=== PATIENT | female | born 1995 | race Caucasian/White ===

== ENCOUNTER 2019-05-14 00:02 | Emergency (ER) | payer BC ==
[2019-05-14 00:16] VITALS: BP 97/61; PULSE 85; TEMP 98.3; BMI 24.5
--- NOTE | 2019-05-14 00:22 | PDOC ---
History of Present Illness - General Chief Complaint: Wound Stated Complaint: R KNEE INJURY History Source: Patient Exam Limitations: No Limitations - History of Present Illness Initial Comments: 05/14/19 01:12 24 yo F with no past medical history presents to the emergency department with right knee pain. Per the patient, it has been ongoing for 3 days. It is warm to the touch, painful when she touches it, but does not limit her ability to walk and bend her knee. Per the patient, it started after she popped a "pimple" on her right knee at [facility]. She states she expressed pus and blood out of her knee yesterday. Denies the following: fever, chills, nausea, vomiting, visual disturbance, headaches, abdominal pain, numbness in legs, weakness in legs, and diarrhea. Of note, the patient recently traveled back from [place] during . Denies previous bug bite. Allergies: NKDA Shx: None Meds: None Past History - Past Medical History Allergies/Adverse Reactions: Allergies Allergy/AdvReac Type Severity Reaction Status Date / Time No Known Allergies Allergy Verified 05/14/19 01:33 Home Medications: Ambulatory Orders Clindamycin [Cleocin -] 450 mg PO TID #21 capsule 05/14/19 COPD: No - Psycho Social/Smoking Cessation Hx Smoking History: Never smoked Hx Alcohol Use: Yes (socially) Drug/Substance Use Hx: No Review of Systems - Review of Systems Able to Perform ROS?: Yes Is the patient limited Frisian proficient: No Constitutional: No: Chills, Diaphoresis, Fever, Weakness HEENTM: No: Eye Pain, Ear Pain, Nose Pain, Throat Pain, Mouth Pain Respiratory: No: Cough, Shortness of Breath, Hemoptysis Cardiac (ROS): No: Chest Pain, Lightheadedness, Palpitations, Syncope, Chest Tightness ABD/GI: No: Constipated, Diarrhea, Nausea, Rectal Bleeding, Vomiting, Tarry Stools : No: Dysuria, Hematuria Musculoskeletal: No: Back Pain Integumentary: Yes: Erythema (right knee). No: Bruising, Rash Neurological: No: Headache, Numbness, Tingling, Tremors Psychiatric: No: Change in Appetite Endocrine: No: Unexplained Weight Loss Hematologic/Lymphatic: No: Anemia *Physical Exam - Vital Signs Last Vital Signs Temp Pulse Resp BP Pulse Ox 98.3 F 85 18 97/61 97 05/14/19 00:10 05/14/19 00:10 05/14/19 00:10 05/14/19 00:10 05/14/19 00:10 - Physical Exam General Appearance: Yes: Nourished, Appropriately Dressed. No: Apparent Distress, Intoxicated HEENT: positive: EOMI, CHANTEL, Normal Voice, Symmetrical, Pharynx Normal, Hearing Grossly Normal. negative: Pale Conjunctivae, Scleral Icterus (R), Scleral Icterus (L), Muffled/Hoarse voice, Pharyngeal Erythema, Tonsillar Exudate, Tonsillar Erythema, Rhinorrhea, Sinus Tenderness, Excessive drooling Neck: positive: Trachea midline, Supple. negative: Tender, Lymphadenopathy (R) , Lymphadenopathy (L), Tender lateral, Tender midline Respiratory/Chest: positive: Lungs Clear, Normal Breath Sounds. negative: Chest Tender, Respiratory Distress, Accessory Muscle Use, Crackles, Rales, Rhonchi, Hyperresonant, Dullness Cardiovascular: positive: Regular Rhythm, Regular Rate, S1, S2. negative: Systolic Murmur Gastrointestinal/Abdominal: positive: Normal Bowel Sounds, Flat, Soft. negative : Tender, Rebound, Tenderness Lymphatic: negative: Adenopathy Musculoskeletal: positive: Normal Inspection. negative: CVA Tenderness, Vertebral Tenderness Extremity: positive: Normal Capillary Refill, Normal Range of Motion. negative : Normal Inspection (right knee cellulitis with abscess located at the center with scab. warm to the touch. no streaks. ROM intact on right knee. no pain in joint with active flexion and extension), Calf Tenderness Integumentary: positive: Normal Color, Dry, Warm. negative: Ecchymosis, Bruising Neurologic: positive: Fully Oriented, Alert, Normal Mood/Affect Procedures - Incision and Drainage I&D Site: Right: Other (knee) Betadine cleansed: Yes Anesthesia: 1% Lidocaine Volume(ml): 3 Blade Size: 11 Attempts: 1 Plain Packing: No Complications: none Dressing: Yes Medical Decision Making - Medical Decision Making 05/14/19 01:22 24 yo F with no past medical history presents to the emergency department with right knee pain. Per the patient, it has been ongoing for 3 days. Initial vitals: Initial Vital Signs Temp Pulse Resp BP Pulse Ox 98.3 F 85 18 97/61 97 05/14/19 00:10 05/14/19 00:10 05/14/19 00:10 05/14/19 00:10 05/14/19 00:10 Work up: POCUS demonstrates cellulitis with an abscess located superiorly to the scab. ID performed with mainly blood expression with minimal amount of purulence. Patient was re-evaluated and achieved hemostasis . Will provide clindamycin for MRSA coverage Patient to be discharged Discharge - Discharge Information Problems reviewed: Yes Clinical Impression/Diagnosis: Abscess, Cellulitis Condition: Improved Disposition: HOME - Admission No - Additional Discharge Information Prescriptions: Clindamycin [Cleocin -] 450 mg PO TID #21 capsule - Follow up/Referral Referrals: [facility] [place] [Provider Group] - Patient Discharge Instructions Patient Printed Discharge Instructions: DI for Cellulitis -- Adult, DI for Skin Abscess Additional Instructions: You were seen in the emergency department for the evaluation of your skin infection. Please take you antibiotics as prescribed. Please return to the emergency department if you have worsening symptoms or new concerning symptoms such as inability to walk, inability to bend knee, red streaks, and systemic features such as fevers, chills, and nausea/vomiting. - Post Discharge Activity
--- NOTE | 2019-05-14 01:19 | PDOC ---
Documentation entered by Emelia Montero SCRIBE, acting as scribe for Bonilla Bales MD. Bonilla Bales MD: This documentation has been prepared by the Kylah lainez Nirvannie, SCRIBE, under my direction and personally reviewed by me in its entirety. I confirm that the documentation accurately reflects all work, treatment, procedures, and medical decision making performed by me. Attending Attestation - Resident Resident Name: Jun Kapoor - ED Attending Attestation I have performed the following: I have examined & evaluated the patient, The case was reviewed & discussed with the resident, I agree w/resident's findings & plan, Exceptions are as noted - HPI HPI: 05/14/19 01:03 CC: Erythema and swelling to the right knee. HPI: The patient is a 24 year old female, with no significant past medical history, who presents to the emergency department with, erythema and swelling to a right knee wound. As per patient, she popped a pimple on the right knee and it has since become erythematous and swollen. Patient notes recently traveling back from [place] 2 weeks ago. She denies any fevers or chills. - Physicial Exam PE: 05/14/19 01:28 Vitals: Triage Vital signs reviewed General Appearance: No acute distress, well nourished well developed, Head: Atraumatic, Extremities: Full range of motion to all extremities, no cyanosis, clubbing, or edema Skin: Warm and dry, 7 x 7 area of cellulitis to right knee over the kneecap, no pain with passive range of motion superficial breakdown of skin with small area of fluctuance in the middle of the kneecap patient states is been draining Neuro: Strength intact to all extremities, sensation intact to all extremities, Psych: Normal mood, normal affect Vitals: Triage Vital signs reviewed - Medical Decision Making 05/14/19 01:30 24 years old with small pimple to right knee which has become superinfected patient has popped the pimple at home now with area of surrounding cellulitis no systemic symptoms patient is well-appearing in no apparent distress. Ultrasound demonstrated a small collection of fluid I indeed at the bedside patient will be placed on clindamycin advised to keep clean covered bacitracin twice a day
[2019-05-14] MEDS ORDERED: CLINDAMYCIN HCL 150 MG CAPSULE (FP) PO ONE (01:24)
[2019-05-14] MEDS ORDERED: ACETAMINOPHEN 325 MG TABLET (FP) PO ONE (01:35)
[2019-05-14] MEDS ORDERED: ACETAMINOPHEN 325 MG TABLET (FP) ONE (01:41)
[2019-05-14] MEDS ORDERED: CLINDAMYCIN HCL 150 MG CAPSULE (FP) ONE (01:42)
== END 2019-05-14 02:17 | disposition home or self-care (01) ==
LOC: JER 00:02
PROC: 0J9N0ZZ Drainage of Right Lower Leg Subcutaneous Tissue and Fascia, Open Approach (ICD-10-PCS; principal; 2019-05-14)
PROC: BH48ZZZ Ultrasonography of Lower Extremity (ICD-10-PCS; 2019-05-14)
DX: L02.415 Cutaneous abscess of right lower limb (principal); L03.115 Cellulitis of right lower limb
CPT/HCPCS: 99281-25